=== PATIENT | male | born 1970 | race Caucasian/White ===

== ENCOUNTER 2017-04-02 19:18 | Emergency (ER) | payer OTHER ==
[2017-04-02] MEDS ORDERED: Ketorolac 60 MG/2 ML SDV IM ONE (19:49)
--- NOTE | 2017-04-02 19:51 | EDM.PDOC ---
[id number] Complaint: PT HURT LT ARM Time Seen by Provider: 04/02/17 19:46 Source of Information: Reports: Patient History Limitations: Reports: No Limitations - History of Present Illness INITIAL COMMENTS - FREE TEXT/NARRATIVE: HISTORY AND PHYSICAL: History of present illness: [47-year-old male complaining of left wrist pain since a twisting injury days ago while at work. Patient tried to vigorously move a hose by whipping up and down with his hand and he felt something pop in his wrist. Painful since. Patient is able to use the wrist with discomfort. He has not done any strenuous activity with the wrist that since the injury. No prior injury to this wrist. No bone or bleeding problems. Patient has no chronic wrist pain Review of systems: As per history of present illness and below otherwise all systems reviewed and negative. Past medical history: As per history of present illness and as reviewed below otherwise noncontributory. Surgical history: As per history of present illness and as reviewed below otherwise noncontributory. Social history: No reported history of drug or alcohol abuse. Family history: As per history of present illness and as reviewed below otherwise noncontributory. Physical exam: Well-appearing patient no acute distress tenderness over the carpal bones in the scaphoid /lunate distribution. Mild soft tissue swelling and range of motion limited by pain. Neurovascularly intact distally HEENT: Atraumatic, normocephalic, pupils reactive, negative for conjunctival pallor or scleral icterus, mucous membranes moist, throat clear, neck supple, nontender, trachea midline. Lungs: Clear to auscultation, breath sounds equal bilaterally, chest nontender. Heart: S1S2, regular, negative for clicks, rubs, or JVD. Abdomen: Soft, nondistended, nontender. Negative for masses or hepatosplenomegaly. Negative for costovertebral tenderness. Pelvis: Stable nontender. Genitourinary: Deferred. Rectal: Deferred. Extremities: Atraumatic, negative for cords or calf pain. Neurovascular unremarkable. Normal except as above Neuro: Awake, alert, oriented. Cranial nerves II through XII unremarkable. Cerebellum unremarkable. Motor and sensory unremarkable throughout. Exam nonfocal. Diagnostics: [X-ray left wrist with abnormality of scapholunate joint] Therapeutics: [] Impression: [Left wrist sprain] Plan: [Signs and symptoms consistent with left wrist injury. No fractures on the x- ray however the scapholunate joint is abnormal. Patient splinted and referred to our hand surgeon Dr. Roberts. He is aware to take NSAIDs as needed and follow- up with the hand surgeon. Stress with patient failure to follow-up appropriately and optimize his outcome could result in permanent disability and inability to use his hand normally. Definitive disposition and diagnosis as appropriate pending reevaluation and review of above. right hand Pain Score (Numeric/FACES): 10 - Related Data Allergies Allergy/AdvReac Type Severity Reaction Status Date / Time diclofenac Allergy Nausea Verified 04/02/17 19:46 Home Meds: Home Meds . [No Known Home Meds] 04/02/17 [History] Review of Systems - Review of Systems Review Of Systems: See Below (History of present illness) ED EXAM, GENERAL - Physical Exam Exam: See Below (History of present illness) Course - Vital Signs Last Recorded V/S: Last Vital Signs Temp 36.8 C 04/02/17 21:29 Pulse 69 04/02/17 21:29 Resp 20 04/02/17 21:29 BP 132/74 04/02/17 21:29 Pulse Ox 96 04/02/17 21:29 - Orders/Labs/Meds Meds: Medications Discontinued Medications Generic Name Dose Route Start Last Admin Trade Name Geovanna PRN Reason Stop Dose Admin Ketorolac Tromethamine 60 mg 04/02/17 19:49 04/02/17 20:00 Toradol IM 04/02/17 19:50 60 mg ONETIME ONE Administration Departure - Departure Time of Disposition: 21:31 Disposition: Home, Self-Care 01 Condition: Good Clinical Impression: Sprain of left wrist, Wrist pain, left - Discharge Information Instructions: Cast or Splint Care, [id number] Referrals: PCP,None [Primary Care Provider] - Vanessa Roberts MD [Physician] - Forms: ED Department Discharge Additional Instructions: It appears that you have a sprain of your left wrist from your injury 5 days ago. Wear splint, rest ice and elevate until follow-up with Dr. Dacia Roberts. He is a plastic surgeon who does hand surgery. Call Dr. Scott's office to arrange an appointment in follow-up in the next one to 2 days. Take ibuprofen 800 mg every 6 hours as needed for pain. Avoid strenuous use of the hand. Failure to follow-up as directed could result in permanent disability and inability to use your left hand with normal function
[2017-04-02 21:30] VITALS: BP 132/74
--- NOTE | 2017-04-03 12:48 | CR ---
EXAM DATE: 04/02/17 PATIENT'S AGE: 47 Patient: MAGGIE GERARD Facility: [place], [place] Site . Site : [id number] Study: XRay Extremity Left [id number]/12/2017 8:08:47 PM Ordering Physician: Kevin Robledo Final Report: INDICATION: Injury. Findings : There is no fracture or dislocation. There is subtle widening of the scapholunate interval suggesting disruption of the intervening ligament. Also, there is mild dorsal tilt of the lunate suggesting dorsal intercalated segmental instability (DISI). There are small cysts within the capitate and hamate. Impression: 1. Negative for fracture. 2. Subtle widening of the scapholunate interval suggesting disruption of the intervening ligament. There is also mild dorsal tilt of the lunate suggesting dorsal intercalated segmental instability (DISI). Dictated by Senthil Nicole MD @ Apr 02 2017 8:24PM (Electronic Signature) Report Signed by Proxy. MEÑO
== END 2017-04-02 21:49 | disposition home or self-care (01) ==
LOC: MW.ED 19:18
DX: S63.502A Unspecified sprain of left wrist, initial encounter (principal); Z88.8 Allergy status to other drugs, medicaments and biological substances; X58.XXXA Exposure to other specified factors, initial encounter
CPT/HCPCS: 29125; 73110; 96372; 99283; J1885